=== PATIENT | female | born 1970 | race Two or more races ===

== ENCOUNTER → 2020-03-06 | Emergency (ER) | payer SELFPAY ==
[~2020-03-06] VITALS: Ht 154.9 cm; Wt 72.1 kg
[2020-03-06 02:25] LABS: Alanine Aminotransferase 33 U/L (13-56); Albumin 3.5 g/dL (3.4-5.0); Anion Gap 4 (5-15); Aspartate Aminotransferase 25 U/L (15-37); BUN/Creatinine Ratio 20.2; Blood Urea Nitrogen 17 mg/dL (7-18); Calcium 8.6 mg/dL (8.5-10.1); Carbon Dioxide 28 mmol/L (21-32); Chloride 106 mmol/L (98-107); GFR African American 93 mL/min; GFR Non-African American 77 mL/min; Glucose 88 mg/dL (74-106); Potassium 3.7 mmol/L (3.5-5.1); Sodium 138 mmol/L (136-145)
[2020-03-06 02:30] LABS: Alkaline Phosphatase 104 U/L (45-117); Bilirubin, Total 0.2 mg/dL (0.2-1.0); Total Protein 7.5 g/dL (6.4-8.2)
[2020-03-06 02:40] LABS: Basophils # (auto) 0 10 ^3/uL (0-0.2); Basophils % (auto) 0.6 % (0.0-2.0); Eosinophils # (auto) 0.3 10 ^3/uL (0-0.8); Eosinophils % (auto) 4.6 % (0.0-7.0); Hemoglobin 12.6 g/dL (12.2-16.2); Lymphocytes # (auto) 2.3 10 ^3/uL (0.4-5.4); Mean Corpuscular Hemoglobin 30.2 pg (28.0-32.0); Mean Corpuscular Hgb Conc. 33.2 g/dL (32.0-36.0); Mean Corpuscular Volume 90.8 fL (80.0-100.0); Monocytes # (auto) 0.4 10 ^3/uL (0-1.3); Monocytes % (auto) 6.8 % (0.0-12.0); Neutrophils # (auto) 3.2 10 ^3/uL (1.6-8.6); Nucleated Red Blood Cells % 0.2 %; Platelet Count (auto) 285 10^3/uL (140-450); Red Blood Cells 4.18 10^6/uL (4.0-5.20); Red Cell Distribution Width 13.6 % (11.8-14.3); White Blood Cell 6.3 10^3/uL (4.4-10.8)
[2020-03-06 03:08] LABS: Amylase 47 U/L (25-115); Lipase 134 U/L (73-393)
[2020-03-06 04:00] VITALS: BP 125/64
[2020-03-06 04:53] LABS: Urine Bacteria FEW /hpf (None Seen); Urine Blood Negative /uL (Negative); Urine Hyaline Cast FEW /lpf (0 - 2); Urine Specific Gravity 1.009 (1.001-1.035); Urine WBC <1 /hpf (0 - 5)
== END | disposition home or self-care (01) ==
LOC: ER 00:10
DX: R07.89 Other chest pain (principal); K29.70 Gastritis, unspecified, without bleeding; F41.9 Anxiety disorder, unspecified
CPT/HCPCS: 36415; 71045; 80053; 81001; 82150; 83690; 83880; 84484; 85025; 93005

== ENCOUNTER 2022-10-22 14:32 | Emergency (ER) | payer SELFPAY ==
[~2022-10-22] VITALS: Ht 160 cm; Wt 74.2 kg
[~2022-10-22 14:32] MED LIST: AMOX500T86 PO
[2022-10-22] MEDS ORDERED: LORazepam 0.5 MG TAB PO ONE (16:45)
[2022-10-22] MEDS ORDERED: ACETAMINOPHEN 500 MG TAB PO ONE (16:45)
[2022-10-22] MEDS ORDERED: ONDANSETRON ODT 4 MG TAB PO ONE (18:00)
[2022-10-22] MEDS ORDERED: MECLIZINE HCL 25 MG TAB PO ONE (18:00)
[2022-10-22] MEDS ORDERED: CYCL-839 PO (18:01)
[2022-10-22] MEDS ORDERED: IBUP600T28 PO (18:01)
[2022-10-22 18:38] VITALS: BP 139/66
== END 2022-10-22 18:03 | disposition home or self-care (01) ==
LOC: ER 14:32
DX: S16.1XXA Strain of muscle, fascia and tendon at neck level, initial encounter (principal); Z88.5 Allergy status to narcotic agent; V49.9XXA Car occupant (driver) (passenger) injured in unspecified traffic accident, initial encounter; Y93.89 Activity, other specified; Y92.89 Other specified places as the place of occurrence of the external cause; Y99.8 Other external cause status
CPT/HCPCS: 72040; 72070

== ENCOUNTER 2023-04-26 00:08 | Inpatient (IN) | payer MEDICAID ==
[~2023-04-26] VITALS: Ht 152.4 cm; Wt 73.8 kg
[~2023-04-26 00:08] MED LIST changes: +CYCL-839 PO; +IBUP1TAB5 PO
[2023-04-26 00:41] LABS: Basophils # (auto) 0.1 10 ^3/uL (0-0.2); Basophils % (auto) 0.9 % (0.0-2.0); Eosinophils # (auto) 0.3 10 ^3/uL (0-0.8); Eosinophils % (auto) 4.9 % (0.0-7.0); Hematocrit 40.5 % (36.0-46.0); Hemoglobin 13.6 g/dL (12.2-16.2); Lymphocytes # (auto) 2.3 10 ^3/uL (0.4-5.4); Lymphocytes % (auto) 33.5 % (10.0-50.0); Mean Corpuscular Hemoglobin 30.6 pg (28.0-32.0); Mean Corpuscular Hgb Conc. 33.6 g/dL (32.0-36.0); Mean Corpuscular Volume 91.1 fL (80.0-100.0); Monocytes # (auto) 0.5 10 ^3/uL (0-1.3); Monocytes % (auto) 6.8 % (0.0-12.0); Neutrophils # (auto) 3.8 10 ^3/uL (1.6-8.6); Neutrophils % (auto) 53.9 % (37.0-80.0); Red Blood Cells 4.45 10^6/uL (4.0-5.20); Red Cell Distribution Width 13.4 % (11.8-14.3)
[2023-04-26 00:45] LABS: Alanine Aminotransferase 51 U/L (7-40); Albumin 4.7 g/dL (3.2-4.8); Alkaline Phosphatase 148 U/L (46-116); Anion Gap 7 (5-15); Aspartate Aminotransferase 88 U/L (13-40); BUN/Creatinine Ratio 11.1 (10.0-20.0); Bilirubin, Total 0.3 mg/dL (0.2-1.0); Blood Urea Nitrogen 10 mg/dL (9-23); Calcium 9.7 mg/dL (8.7-10.4); Carbon Dioxide 27 mmol/L (20-30); Chloride 105 mmol/L (98-107); Glucose 98 mg/dL (74-106); INR 0.97 (0.9-1.15); Magnesium 2.3 mg/dL (1.6-2.6); Potassium 3.9 mmol/L (3.5-5.1); Prothrombin Time 10.2 sec (9.3-11.8); Sodium 139 mmol/L (136-145)
[2023-04-26] MEDS ORDERED: ONDANSETRON HCL 4 MG/2 ML VIAL IV ONE (01:45)
[2023-04-26] MEDS ORDERED: PANTOPRAZOLE 40mg/50ML NS AE 50 ML IV ONE (04:00)
[2023-04-26] MEDS ORDERED: PANTOPRAZOLE 80 MG in SODIUM CHL 0.9% 100 ML IV ONE (04:00)
[2023-04-26] MEDS ORDERED: SODIUM CHLORIDE 0.9% 1,000 ML IV ONE (04:00)
[2023-04-26] MEDS ORDERED: SODIUM CHLORIDE 0.9% 1,000 ML IV SCH (04:30)
[2023-04-26] MEDS ORDERED: IBUPROFEN 600 MG TAB PO PRN (04:30)
[2023-04-26] MEDS ORDERED: ONDANSETRON HCL 4 MG/2 ML VIAL IV PRN (04:30)
[2023-04-26] MEDS ORDERED: DOCUSATE SOD 100 MG CAP PO PRN (04:30)
[2023-04-26] MEDS ORDERED: PANTOPRAZOLE 40 MG/10 ML VIAL INJ IV ONE (05:41)
[2023-04-26] MEDS ORDERED: NITROGLYCERIN 0.4 MG SL TAB SL PRN (06:00)
[2023-04-26 06:03] VITALS: BP 130/72; PULSE 61; RESP 18; TEMP 97.5; O2SAT 100
[2023-04-26 07:42] LABS: Basophils # (auto) 0.1 10 ^3/uL (0-0.2); Basophils % (auto) 0.7 % (0.0-2.0); Eosinophils # (auto) 0.1 10 ^3/uL (0-0.8); Hematocrit 39.7 % (36.0-46.0); Hemoglobin 13.1 g/dL (12.2-16.2); Lymphocytes # (auto) 1.3 10 ^3/uL (0.4-5.4); Lymphocytes % (auto) 15.7 % (10.0-50.0); Mean Corpuscular Hgb Conc. 32.9 g/dL (32.0-36.0); Mean Corpuscular Volume 91.1 fL (80.0-100.0); Monocytes # (auto) 0.3 10 ^3/uL (0-1.3); Monocytes % (auto) 3.8 % (0.0-12.0); Neutrophils # (auto) 6.4 10 ^3/uL (1.6-8.6); Neutrophils % (auto) 78.8 % (37.0-80.0); Red Blood Cells 4.36 10^6/uL (4.0-5.20); Red Cell Distribution Width 13.5 % (11.8-14.3); White Blood Cell 8.1 10^3/uL (4.4-10.8)
[2023-04-26 08:04] LABS: Alanine Aminotransferase 51 U/L (7-40); Alkaline Phosphatase 132 U/L (46-116); Anion Gap 6 (5-15); BUN/Creatinine Ratio 13.7 (10.0-20.0); Blood Urea Nitrogen 10 mg/dL (9-23); Calcium 9.2 mg/dL (8.5-10.1); Carbon Dioxide 25 mmol/L (20-30); Chloride 109 mmol/L (98-107); Glucose 86 mg/dL (74-106); Potassium 4.3 mmol/L (3.5-5.1); Sodium 140 mmol/L (136-145)
[2023-04-26 08:05] LABS: Albumin 4.4 g/dL (3.2-4.8); Aspartate Aminotransferase 49 U/L (13-40); Bilirubin, Total 0.6 mg/dL (0.2-1.0); Total Protein 7.7 g/dL (5.7-8.2)
[2023-04-26] MEDS ORDERED: POLYETHYLENE GLYCOL 17 GM PWDR PO ONE (12:00)
[2023-04-26] MEDS ORDERED: PANTOPRAZOLE 40 MG TAB PO SCH (22:00)
[2023-04-27] MEDS ORDERED: POLYETHYLENE GLYCOL 17 GM PWDR PO SCH (10:00)
== END 2023-04-26 11:32 | disposition left against medical advice (07) | DRG 241 ==
LOC: ER 00:08 → TELE 05:53
PROVIDERS: ADMIT Nurse Practitioner Acute Care; ATTEND Nurse Practitioner Family
DX: K29.71 Gastritis, unspecified, with bleeding (principal); R07.9 Chest pain, unspecified; Z53.29 Procedure and treatment not carried out because of patient's decision for other reasons; R79.89 Other specified abnormal findings of blood chemistry; Z88.5 Allergy status to narcotic agent; Z98.51 Tubal ligation status
CPT/HCPCS: 36415; 71045; 74176; 76705; 80053; 83690; 83735; 84484; 85025; 85610; 85730; 93005; 96365; C9113; G0378; J2405

== ENCOUNTER 2025-02-27 18:51 | Emergency (ER) | payer OTHER, MEDICAID ==
[~2025-02-27] VITALS: Ht 154.9 cm; Wt 69.0 kg
--- NOTE | 2025-02-27 19:56 | ED.PDOC ---
Donis. trauma (HPI) HPI Comments 54 y.o female who presents to the ED s/p all today, sustaining an injury to her right arm. 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 Her chief complaints is right elbow pain radiating down her hand and right hand numbness. She took three Advil before arrival without any pain relief. No other symptoms were reported, and she denies head injury or LOC. Chief Complaint: Upper Extremity Time Seen by MD: 19:42 Primary Care Provider: NONE Reviewed notes: Nurses Notes, Medications, Allergies Allergies: Coded Allergies: Codeine (Verified Allergy, Unknown, RASH/ITCHINESS, 10/22/22) Home Meds Active Scripts Cyclobenzaprine Hcl (Cyclobenzaprine Hcl) 10 Mg Tab, 10 MG PO TID, #12 TAB 0 Refills Prov:LESIA RODNEY [facility] 10/22/22 Ibuprofen Micronized (Ibuprofen) 600 Mg Tab, 600 MG PO Q8HPRN PRN, #30 TAB 0 Refills Prov:LESIA RODNEY [facility] 10/22/22 Amoxicillin & Pot Clavulanate (Augmentin) 500 Mg Tab, 1 TAB PO TID for 5 Days, #15 TAB Prov:MEI MAURO DO 10/02/21 Information Source: Patient Mode of Arrival: Ambulatory Severity: Moderate Timing: Hours Duration: Since onset Location: (R) Elbow Location of laceration: None Mechanism: Fall Associated signs and symtoms: Other Past Medical History PAST MEDICAL HISTORY: Denies Surgical History: BTL, ELECTION JUDGE History: No Pertinent ELECTION JUDGE History Family History Family History: Reviewed,noncontributory to illness Social History Smoker: Non-Smoker Alcohol: Denies ETOH Use Drugs: Denies Drug Use Lives In: Home Constitutional: denies: chills, diaphoresis, fatigue, fever, malaise, sweats, weakness, others EENTM: denies: blurred vision, double vision, ear bleeding, ear discharge, ear drainage, ear pain, ear ringing, eye pain, eye redness, hearing loss, mouth pain, mouth swelling, nasal discharge, nose bleeding, nose congestion, nose pain, photophobia, tearing, throat pain, throat swelling, voice changes, others Respiratory: denies: cough, hemoptysis, orthopnea, SOB at rest, shortness of breath, SOB with excertion, stridor, wheezing, others Cardiovascular: denies: chest pain, dizzy spells, diaphoresis, Dyspnea on exertion, edema, irregular heart beat, left arm pain, lightheadedness, palpitations, PND, syncope, others Gastrointestinal: denies: abdomen distended, abdominal pain, blood streaked bowels, constipated, diarrhea, dysphagia, difficulty swallowing, hematemesis, melena, nausea, poor appetite, poor fluid intake, rectal bleeding, rectal pain, vomiting, others Genitourinary: denies: abnormal vagina bleeding, burning, dyspareunia, dysuria, flank pain, frequency, hematuria, incontinence, pain, , vagina discharge, urgency, others Neurological: denies: dizziness, fainting, headache, left sided numbness, left sided weakness, numbness, paresthesia, pre-existing deficit, right sided numbness, right sided weakness, seizure, speech problems, tingling, tremors, weakness, others Musculoskeletal: reports: others (right elbow pain radiating down wrist ); denies: back pain, gout, joint pain, joint swelling, muscle pain, muscle stiffness, neck pain Integumetry: denies: bruises, change in color, change in hair/nails, dryness, laceration, lesions, lumps, rash, wounds, others Allergic/Immunocompromised: denies: Difficulty Healing, Frequent Infections, Hives, Itching, others Hematologic/Lymphatic: denies: anemia, blood clots, easy bleeding, easy bruising, swollen glands, others Endocrine: denies: excessive hunger, excessive sweating, excessive thirst, excessive urination, flushing, intolerance to cold, intolerance to heat, unexplained weight gain, unexplained weight loss, others Psychiatric: denies: anxiety, bipolar disorder, depression, hopeless, panic disorder, schizophrenia, sleepless, suicidal, others All Other Systems: Reviewed and Negative Physical Exam General Appearance: No Apparent Distress, Normal HEENT: Normal ENT Inspection, Pharynx Normal, TMs Normal Neck: Full Range of Motion, Non-Tender, Normal, Normal Inspection Respiratory: Chest Non-Tender, Lungs Clear, No Accessory Muscle Use, No Respiratory Distress, Normal Breath Sounds Cardiovascular: No Edema, No JVD, No Murmur, No Gallop, Normal Peripheral Pulses, Regular Rate/Rhythm Breast Exam: Deferred Gastrointestinal: No Organomegaly, Non Tender, No Pulsatile Mass, Normal Bowel Sounds, Soft Genitalia: Deferred Pelvic: Deferred Rectal: Deferred Extremities: Tender Musculoskeletal : Location: Right Extremity Location: Elbow Apperance: Limited ROM, Tenderness: Moderate Neurologic: Alert, measurement supervisor II-XII nml as Tested, No Motor Deficits, Normal Affect, Normal Mood, No Sensory Deficits Cerebellar Function: Normal Reflexes: Normal Skin: Dry, Normal Color, Warm Lymphatic: No Adenopathy Was a procedure done? Was a procedure done?: No Differential Diagnosis Multiple Trauma: Fractures, Contusion, Other (straint, sprain, dislocation ) X-Ray, Labs, Meds, VS Vital Signs Date Time Temp Pulse Resp B/P (MAP) Pulse Ox O2 Delivery O2 Flow Rate FiO2 02/27/25 18:53 98.2 77 15 150/70 99 98.2 X-Ray, Labs, Meds, VS Comment Imaging was reviewed by this provider, there is no obvious pathological or acute disease process. Pending radiology review Labs were reviewed by this provider, no abnormalities Vital signs reviewed by this provider, clinically stable Time of 1ST Reevaluation: 19:50 Reevaluation 1ST: Unchanged Patient Education/Counseling: Diagnosis, Treatment, Prognosis, Need For Follow Up (Follow-up with PCP in the next 2-4 days. Return to the emergency department in the next 24-48 hours if symptoms worsen.) Family Education/Counseling: No Family Present Departure 1 Departure Time of Disposition: 21:15 Impression: Primary Impression: Contusion of right elbow Qualified Codes: S50.01XA - Contusion of right elbow, initial encounter Disposition: HOME / SELF CARE / HOMELESS Condition: Stable e-Prescriptions Ibuprofen Micronized (Ibuprofen) 800 Mg Tab 800 MG PO TID PRN, #40 TAB Prov: ROHAN SPIVEY 02/27/25 Discharged With: Self Critical Care Note Critical Care Time?: No Stability Stability form required: No I personally scribed for ROHAN SPIVEY [facility] on 02/27/25 at 19:56. Electronically submitted by Cecilia Young ([facility]). ROHAN SPIVEY Feb 27, 2025 19:56
--- NOTE | 2025-02-27 20:59 | DVH ---
CLINICAL INDICATION: pain TECHNIQUE: 3 radiographic views of the right elbow were obtained. Comparison: None FINDINGS/IMPRESSION: Normal bony alignment. No fracture dislocation. No findings of a joint effusion. HS:Y
[2025-02-27] MEDS ORDERED: IBUP-1455 PO (21:16)
[2025-02-27] MEDS: KETOROLAC TROMETH 30 MG/ML 1ML VIAL IM ONE (22:31)
[2025-02-27] MEDS: methylPREDNISolone SOD SUCC 125 MG/2 ML VL IM ONE (22:31)
[2025-02-27 22:41] VITALS: BP 150/79; RESP 17; TEMP 97.7; O2SAT 99
[2025-02-27] MEDS: SODIUM CHLORIDE 0.9% 1,000 ML IV ONE (23:03)
[2025-02-27 23:29] VITALS: PULSE 43
--- NOTE | 2025-03-03 14:05 | ECG ---
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
== END 2025-02-28 02:00 | disposition home or self-care (01) ==
LOC: ER 18:51
DX: S50.01XA Contusion of right elbow, initial encounter (principal); Z88.5 Allergy status to narcotic agent; Z79.899 Other long term (current) drug therapy; W01.0XXA Fall on same level from slipping, tripping and stumbling without subsequent striking against object, initial encounter; Y93.89 Activity, other specified; Y92.89 Other specified places as the place of occurrence of the external cause; Y99.8 Other external cause status
CPT/HCPCS: 73080; 93005; 96360; 96372; 99284; J1885; J2919; J7030

== ENCOUNTER 2025-06-14 11:01 | Emergency (ER) | payer MEDICAID, OTHER ==
[~2025-06-14] VITALS: Ht 154.9 cm; Wt 70.8 kg
[~2025-06-14 11:01] MED LIST changes: +IBUP-1455 PO
--- NOTE | 2025-06-14 11:50 | ED.PDOC ---
GI ASSESSMENT HPI Comments 55-year-old female that presents to the ED with a chief complaint nausea vomiting. Patient states she has been having nausea vomiting since yesterday afternoon. Patient states yesterday she was at a a local clinic and the patient received a 0.5 mg shot for off-label Ozempic for weight loss. Patient presents she has been having associated headache and states she has been unable to keep any food down since. Patient states he tried to eat pizza and calling in his morning and fell vomiting episode. Patient states he takes meloxicam for symptoms but states that it has not helped Chief Complaint: Nausea/Vomiting Time Seen by MD: 11:48 Primary Care Provider: NONE Reviewed Notes: Medications, Allergies Allergies: Coded Allergies: Codeine (Verified Allergy, Unknown, RASH/ITCHINESS, 10/22/22) Home Meds Active Scripts Ondansetron HCl (Ondansetron) 4 Mg Tab, 4 MG PO Q8HP PRN for 3 Days, #9 TAB 0 Refills Prov:CAITLIN HESS EDUCATIONAL DIAGNOSTICIAN 06/14/25 Ibuprofen Micronized (Ibuprofen) 800 Mg Tab, 800 MG PO TID PRN, #40 TAB Prov:ROHAN CARLTON MANAGER ETL 02/27/25 Cyclobenzaprine Hcl (Cyclobenzaprine Hcl) 10 Mg Tab, 10 MG PO TID, #12 TAB 0 Refills Prov:LESIA RODNEY MANAGER [facility] 10/22/22 Ibuprofen Micronized (Ibuprofen) 600 Mg Tab, 600 MG PO Q8HPRN PRN, #30 TAB 0 Refills Prov:LESIA RODNEY [facility] 10/22/22 Amoxicillin & Pot Clavulanate (Augmentin) 500 Mg Tab, 1 TAB PO TID for 5 Days, #15 TAB Prov:MEI MAURO DO 10/02/21 Information Source: Patient Mode of Arrival: Ambulatory Brought in by: Self Past Medical History PAST MEDICAL HISTORY: Denies Surgical History: BTL, PLATE PRINTER History: No Pertinent PLATE PRINTER History Family History Family History: Reviewed,noncontributory to illness Social History Smoker: Non-Smoker Alcohol: Denies ETOH Use Drugs: Denies Drug Use Lives In: Home Constitutional: denies: chills, diaphoresis, fatigue, fever, malaise, sweats, weakness, others EENTM: denies: blurred vision, double vision, ear bleeding, ear discharge, ear drainage, ear pain, ear ringing, eye pain, eye redness, hearing loss, mouth pain, mouth swelling, nasal discharge, nose bleeding, nose congestion, nose pain, photophobia, tearing, throat pain, throat swelling, voice changes, others Respiratory: denies: cough, hemoptysis, orthopnea, SOB at rest, shortness of breath, SOB with excertion, stridor, wheezing, others Cardiovascular: denies: chest pain, dizzy spells, diaphoresis, Dyspnea on exertion, edema, irregular heart beat, left arm pain, lightheadedness, palpitations, PND, syncope, others Gastrointestinal: reports: nausea, vomiting; denies: abdomen distended, abdominal pain, blood streaked bowels, constipated, diarrhea, dysphagia, difficulty swallowing, hematemesis, melena, poor appetite, poor fluid intake, rectal bleeding, rectal pain, others Genitourinary: denies: abnormal vagina bleeding, burning, dyspareunia, dysuria, flank pain, frequency, hematuria, incontinence, pain, , vagina discharge, urgency, others Neurological: denies: dizziness, fainting, headache, left sided numbness, left sided weakness, numbness, paresthesia, pre-existing deficit, right sided numbness, right sided weakness, seizure, speech problems, tingling, tremors, weakness, others Musculoskeletal: denies: back pain, gout, joint pain, joint swelling, muscle pain, muscle stiffness, neck pain, others Integumetry: denies: bruises, change in color, change in hair/nails, dryness, laceration, lesions, lumps, rash, wounds, others Allergic/Immunocompromised: denies: Difficulty Healing, Frequent Infections, Hives, Itching, others Hematologic/Lymphatic: denies: anemia, blood clots, easy bleeding, easy bruising, swollen glands, others Endocrine: denies: excessive hunger, excessive sweating, excessive thirst, excessive urination, flushing, intolerance to cold, intolerance to heat, unexplained weight gain, unexplained weight loss, others Psychiatric: denies: anxiety, bipolar disorder, depression, hopeless, panic disorder, schizophrenia, sleepless, suicidal, others All Other Systems: Reviewed and Negative Physical Exam General Appearance: No Apparent Distress, Normal HEENT: Normal ENT Inspection, Pharynx Normal, TMs Normal Neck: Full Range of Motion, Non-Tender, Normal, Normal Inspection Respiratory: Chest Non-Tender, Lungs Clear, No Accessory Muscle Use, No Respiratory Distress, Normal Breath Sounds Cardiovascular: No Edema, No JVD, No Murmur, No Gallop, Normal Peripheral Pulses, Regular Rate/Rhythm Breast Exam: Deferred Gastrointestinal: No Organomegaly, Non Tender, No Pulsatile Mass, Normal Bowel Sounds, Soft Genitalia: Deferred Pelvic: Deferred Rectal: Deferred Extremities: No calf tenderness, Normal capillary refill, Normal inspection, Normal range of motion, Non-tender, No pedal edema Musculoskeletal : Apperance: Normal Neurologic: Alert, extension work director II-XII nml as Tested, No Motor Deficits, Normal Affect, Normal Mood, No Sensory Deficits Cerebellar Function: Normal Reflexes: Normal Skin: Dry, Normal Color, Warm Lymphatic: No Adenopathy Was a procedure done? Was a procedure done?: No GI differential Dx Differential Diagnosis: Gastritis/PUD, Gastroenteritis, Pancreatitis, Food Poisoning, Bacterial, Viral Other Differential Diagnosis Side effect of medication Ozempic X-Ray, Labs, Meds, VS Vital Signs Date Time Temp Pulse Resp B/P (MAP) Pulse Ox O2 Delivery O2 Flow Rate FiO2 06/14/25 14:20 68 16 97 Room Air 06/14/25 14:20 98.3 62 16 126/86 (99) 97 98.3 06/14/25 14:17 98.3 06/14/25 11:03 97.8 67 16 126/76 98 97.8 Lab Test 06/14/25 11:54 Range/Units White Blood Count 4.8 4.4-10.8 10^3/uL Red Blood Count 4.72 4.0-5.20 10^6/uL Hemoglobin 14.3 12.2-16.2 g/dL Hematocrit 42.4 36.0-46.0 % Mean Corpuscular Volume 89.9 80.0-100.0 fL Mean Corpuscular Hemoglobin 30.3 28.0-32.0 pg Mean Corpuscular Hemoglobin Concent 33.6 32.0-36.0 g/dL Red Cell Distribution Width 13.6 11.8-14.3 % Platelet Count 306 140-450 10^3/uL Mean Platelet Volume 8.9 6.9-10.8 fL Neutrophils (%) (Auto) 68.8 37.0-80.0 % Lymphocytes (%) (Auto) 23.1 10.0-50.0 % Monocytes (%) (Auto) 5.1 0.0-12.0 % Eosinophils (%) (Auto) 2.2 0.0-7.0 % Basophils (%) (Auto) 0.8 0.0-2.0 % Neutrophils # (Auto) 3.3 1.6-8.6 10 ^3/uL Lymphocytes # (Auto) 1.1 0.4-5.4 10 ^3/uL Monocytes # (Auto) 0.2 0-1.3 10 ^3/uL Eosinophils # (Auto) 0.1 0-0.8 10 ^3/uL Basophils # (Auto) 0 0-0.2 10 ^3/uL Nucleated Red Blood Cells 0.1 % Sodium Level 140 136-145 mmol/L Potassium Level 4.4 3.5-5.1 mmol/L Chloride Level 102 98-107 mmol/L Carbon Dioxide Level 29 20-31 mmol/L Anion Gap 9 5-15 Blood Urea Nitrogen 10 9-23 mg/dL Creatinine 0.76 0.550-1.02 mg/dL Glomerular Filtration Rate Calc 92 >90 mL/min BUN/Creatinine Ratio 13.2 10.0-20.0 Serum Glucose 92 74-106 mg/dL Calcium Level 10.3 8.7-10.4 mg/dL Lipase 36 12-53 U/L X-Ray, Labs, Meds, VS Comment Patient arrives alert and oriented, ABC's intact, afebrile, vital signs stable, saturating well in room air Peripheral IV insertion+ labs were ordered. CBC was ordered to exclude anemia, blood loss, or infection. BMP was ordered to exclude electrolyte abnormalities, renal failure, dehydration, hyperglycemia Lipase Patient was given 1 L IV fluids, Tylenol 1 g, and Zofran 4 mg p.o. one tab. Tolerated medications with no adverse reaction. On reevaluation, patient had symptomatic improvement. Patient is stable for discharge at this time. External notes reviewed. Test results and diagnostic imaging interpreted. All diagnostic findings, discharge care, education and instructions provided Follow-up with PCP in 2 to 3 days Patient verbalized understanding and agreed to treatment plan Vital signs stable, afebrile, no acute distress noted Patient ambulatory with strong steady gait Advised to return precautions for any new or worsening symptoms, return to ER immediately for re-evaluation Patient is aware that the purpose of this visit was for an acute medical emerge ncy requiring emergent stabilization. Chronic conditions, including malignancies have not been ruled out. Patient is instructed to follow up with PCP as directed and discharge instructions for continued care and workup. If unable to arrange follow-up, patient is to return to the emergency department for reassessment. Patient (parent or legal guardian if applicable) was given verbal and written discharge instructions and acknowledges understanding. Additional MDM Review of External, Non-ED records: External records reviewed. Discussion with independent historian (EMS, family) history obtained from the patient/parents (if applicable) at bedside Chronic conditions affecting care: None Social determinants of health affecting care: None Consideration of admission (observation or admission): I considered escalation of care to admission for this patient, however given the reassuring workup, the patient is safe for outpatient management. Discussion with the Radiology: No Tests considered but not performed: Prescription medication considered but not given: 12 lead EKG interpretation: Time of 1ST Reevaluation: 12:20 Reevaluation 1ST: Unchanged Patient Education/Counseling: Diagnosis, Treatment Family Education/Counseling: No Family Present SEPSIS Sepsis Screen Date sepsis recognized/suspect: Jun 14, 2025 Time Sepsis recognized/suspect: 1105 Recent Procedure: No On Antibiotic Therapy: No Respiratory Rate >20: No Heart Rate >90: No Temp<36 C (96.8 F) or >38.3 C: No SBP <90 or MAP <65 mmHG: No New Acute Mental Status Change: No Is the patient on CPAP, BIPAP,: No Vital Signs Date Time Temp Pulse Resp B/P (MAP) Pulse Ox O2 Delivery O2 Flow Rate FiO2 06/14/25 14:20 68 16 97 Room Air 06/14/25 14:20 98.3 62 16 126/86 (99) 97 98.3 06/14/25 14:17 98.3 06/14/25 11:03 97.8 67 16 126/76 98 97.8 Laboratory Tests Test 06/14/25 11:54 White Blood Count 4.8 10^3/uL (4.4-10.8) Departure 1 Departure Time of Disposition: 14:09 Impression: Primary Impression: Nausea and vomiting Qualified Codes: R11.2 - Nausea with vomiting, unspecified Disposition: HOME / SELF CARE / HOMELESS Condition: Stable e-Prescriptions Ondansetron HCl (Ondansetron) 4 Mg Tab 4 MG PO Q8HP PRN for 3 Days, #9 TAB 0 Refills Prov: CAITLIN HESS NP 06/14/25 Critical Care Note Critical Care Time?: No Stability Stability form required: No Heart Score Heart Score: Heart Score Response (Comments) Value History N/A 0 EKG N/A 0 Age N/A 0 Risk Factors N/A 0 Troponin N/A 0 Total 0 I personally scribed for CAITLIN HESS NP ([email or web address]) on 06/14/25 at 11:50. Electronically submitted by Kelli Benoit ([employer]). I personally scribed for CAITLIN HESS NP ([email or web address]) on 06/14/25 at 14:17. Electronically submitted by Kelli Benoit ([employer]). CAITLIN HESS NP Jun 14, 2025 11:50
[2025-06-14 12:20] LABS: Hematocrit 42.4 % (36.0-46.0); Hemoglobin 14.3 g/dL (12.2-16.2); Mean Corpuscular Hemoglobin 30.3 pg (28.0-32.0); Mean Corpuscular Volume 89.9 fL (80.0-100.0); Nucleated Red Blood Cells % 0.1 %
[2025-06-14] MEDS: ONDANSETRON ODT 4 MG TAB PO ONE (12:23)
[2025-06-14] MEDS: SODIUM CHLORIDE 0.9% 1,000 ML IV ONE (12:23)
[2025-06-14 12:28] LABS: Chloride 102 mmol/L (98-107); Potassium 4.4 mmol/L (3.5-5.1); Sodium 140 mmol/L (136-145)
[2025-06-14 12:29] LABS: Anion Gap 9 (5-15); Calcium 10.3 mg/dL (8.7-10.4); Carbon Dioxide 29 mmol/L (20-31)
[2025-06-14 12:34] LABS: BUN/Creatinine Ratio 13.2 (10.0-20.0); Blood Urea Nitrogen 10 mg/dL (9-23); Glucose 92 mg/dL (74-106)
[2025-06-14 12:35] LABS: Lipase 36 U/L (12-53)
[2025-06-14] MEDS: ACETAMINOPHEN 500 MG TAB or CAP PO ONE (13:18)
[2025-06-14] MEDS ORDERED: ONDA-155 PO (14:11)
[2025-06-14 14:20] VITALS: BP 126/86; PULSE 68; RESP 16; TEMP 98.3; O2SAT 97
== END 2025-06-14 14:23 | disposition home or self-care (01) ==
LOC: ER 11:01
DX: R11.2 Nausea with vomiting, unspecified (principal); Z98.51 Tubal ligation status; Z88.5 Allergy status to narcotic agent; Z79.899 Other long term (current) drug therapy
CPT/HCPCS: 36415; 80048; 83690; 85025; 96360; 96361; 99283; J7030; Q0162